=== PATIENT | male | born 1995 | race African-American/Black ===

== ENCOUNTER 2021-05-29 09:02 | Emergency (ER) | payer OTHER, SELFPAY ==
[2021-05-29 09:12] VITALS: BP 135/86; PULSE 58; RESP 16; TEMP 35.9; O2SAT 99
--- NOTE | 2021-05-29 09:32 | ED.ABDPAIN ---
HPI - Abdominal Pain General Chief Complaint: Abdominal Pain Stated Complaint: abd pain Time Seen by Provider: 05/29/21 09:22 Source: patient and RN notes reviewed Mode of arrival: ambulatory Limitations: no limitations History of Present Illness HPI narrative: Patient presents today complaining of severe lower abdominal pain since 3:00 this morning with nausea and vomiting. Patient states he has vomited 3 times, last was 30 minutes prior to arrival. She denies fever, diarrhea, constipation, urinary symptoms. Currently rates pain 10/10 and has taken no medication for symptoms prior to arrival. No one else in his home is sick. MD elicited complaint: abdominal pain Related Data Allergies Allergy/AdvReac Type Severity Reaction Status Date / Time No Known Allergies Allergy Verified 05/29/21 09:19 Review of Systems Review of Systems: CONSTITUTIONAL: Denies body aches, fever, chills, or sweats. EYES: Denies visual changes, redness, or discharge. ENT: Denies rhinorrhea, congestion, sore throat, or otalgia. CARDIOVASCULAR: Denies chest pain, palpitations, or edema. RESPIRATORY: Denies cough or dyspnea. GASTROINTESTINAL: Denies diarrhea. + Nausea, vomiting, abdominal pain GENITOURINARY: Denies dysuria or hematuria. SKIN: Denies rash, itching, or wounds. MUSCULOSKELETAL: Denies back pain, joint pain, or myalgia. NEUROLOGIC: Denies headache, numbness, tingling, or weakness. PSYCH: Denies depression or anxiety. PMFSH Comments At time of signature, I have reviewed and agree with nursing past medical, surgical, social and family history unless otherwise noted. Please see nursing chart for further information. There is no relevant family history pertinent to the presenting complaint Exam Narrative: GENERAL: Ill-appearing, well-nourished, and in moderate pain distress. HEAD: Normocephalic, atraumatic. EYES: EOMI. No redness or drainage. Conjunctivae normal. ENT: Mucous membranes pink and moist. NECK: Normal AROM. CHEST: No respiratory distress. Clear to auscultation. HEART: Regular rate and rhythm. No murmur appreciated. Normal peripheral pulses. ABDOMEN: Soft, nondistended, hyperactive bowel sounds. +Tenderness and guarding to bilateral lower quadrants. EXTREMITIES: Normal range of motion. No edema. SKIN: Warm, dry, no rash. Capillary refill normal. Normal skin turgor. NEURO: No focal deficits. Alert and oriented x3. Gait steady. PSYCH: Normal affect. No signs of depression or anxiety. Course Course Level of Care: Express Care Visit Vital Signs Vital signs: Vital Signs Temperature 96.7 F L 05/29/21 09:12 Pulse Rate 58 L 05/29/21 09:12 Respiratory Rate 16 05/29/21 09:12 Blood Pressure 135/86 05/29/21 09:12 Pulse Oximetry 99 05/29/21 09:12 Temperature 96.7 F L 05/29/21 09:12 Pulse Rate 58 L 05/29/21 09:12 Respiratory Rate 16 05/29/21 09:12 Blood Pressure 135/86 05/29/21 09:12 Pulse Oximetry 99 05/29/21 09:12 Reviewed Transfer Transfered to: [place] Transportation: Other (Private vehicle) Transfer rationale: Abdominal pain Accepting physician: Ankit MDM - Abdominal Pain Differential Diagnosis Differential diagnosis: Likely abdominal pain, acute appendicitis, calculus of kidney, diverticulitis, gastroenteritis and other Lab Data Attestation: I reviewed the patient's lab results. Labs: Urine Glucose Negative Reference Range: Negative Urine Bilirubin Negative Reference Range: Negative Urine Ketone Negative Reference Range: Negative Urine Specific [place] 1.030 Reference Range:1.001-1.035 Urine Blood Trace Reference Range: Negative *
== END 2021-05-29 09:35 | disposition short-term general hospital (02) ==
PROVIDERS: Emergency Provider Nurse Practitioner
DX: R10.31 Right lower quadrant pain (principal); R10.32 Left lower quadrant pain
CPT/HCPCS: 81003; 99203; G0463

== ENCOUNTER 2021-05-29 09:50 | Emergency (ER) | payer OTHER, SELFPAY ==
--- NOTE | ~2021-05-29 | CT_ITS ---
EXAMINATION: CT abdomen pelvis w con DATE: 05/29/2021 11:42 INDICATION: Abdominal pain and vomiting TECHNIQUE: Computed tomography (CT) of the abdomen and pelvis was performed with 100 mL Omnipaque-350 intravenous contrast. Automated exposure control and iterative reconstruction technique were employe d. The dose-length product was 271.81 mGy-cm. COMPARISON: None FINDINGS: Lung bases are clear. Heart size is normal. No pericardial or pleural effusion. Liver, gallbladder, s pleen, pancreas, bilateral adrenal glands and left kidney are normal. There is a 2 mm stone at the ri ght ureterovesicular junction. There is mild right hydroureteronephrosis with delayed right nephrogra m and mild right perinephric stranding. Bowels including the appendix are normal. No free intraperito robina gas or fluid. No pathologically enlarged abdominal or pelvic lymphadenopathy. Bones are unremark able. IMPRESSION: 1. 2 mm stone at the right ureterovesicular junction with mild right hydroureteronephrosis. Reviewed, dictated and finalized at location A. IMPRESSION: 1. 2 mm stone at the right ureterovesicular junction with mild right hydrourete ronephrosis.
--- NOTE | ~2021-05-29 | XR_ITS ---
EXAMINATION: XR abdomen/kub 1V DATE: 05/29/2021 13:03 INDICATION: Ureterolithiasis TECHNIQUE: A supine view of the abdomen was obtained. COMPARISON: CT dated 05/29/2021 at 11:32 AM FINDINGS: Excreted contrast is seen in the left renal collecting system and in the bladder without hydronephros is. Prominent delayed right nephrogram with no evident excreted contrast in the right renal collectin g system to assess for hydronephrosis. The stomach. Seen in the region of the right ureterovesicular junction is unable to be distinguished from the contrast in the bladder. Normal bowel gas pattern. IMPRESSION: 1. Prominent delayed right nephrogram with no evident excreted contrast at the right renal collecting system which suggests persistent significant right-sided obstruction due to the stone previously see n at the right ureterovesicular junction. Reviewed, dictated and finalized at location A. IMPRESSION: 1. Prominent delayed right nephrogram with no evident excreted contrast at the right renal collecting system which suggests persistent significant right-sided obstruction due to the stone previously seen at the right ureterovesicular carmen ction.
[2021-05-29 09:53] VITALS: BP 129/79; PULSE 59; RESP 12; TEMP 36.1; O2SAT 100
[2021-05-29 10:19] LABS: Basophils Absolute Auto 0.1 K/mm3 (0.0-0.1); Basophils Percent Auto 0.4 % (0.2-1.2); Eosinophils Percent Auto 0.1 % (0-4.4); Hematocrit 42.9 % (42.0-52.0); Hemoglobin 14.8 g/dL (14.0-18.0); Immature Granulocyte Absolute 0.09 K/mm3 (0.00-0.031); Immature Granulocyte Percent A 0.6 % (0-0.5); Lymphocytes Absolute Auto 1.51 K/mm3 (0.9-3.2); Lymphocytes Percent Auto 10.9 % (18.3-44.2); Mean Corpuscular HGB Conc 34.5 g/dl (32-36); Mean Corpuscular Hemoglobin 30.7 pg (26-34); Mean Platelet Volume 9.3 fl (7.4-10.4); Monocytes Absolute Auto 1.1 K/mm3 (0.1-0.6); Monocytes Percent Auto 7.6 % (2.6-8.5); Neutrophils Absolute Auto 11.2 K/mm3 (1.3-6.7); Neutrophils Percent Auto 80.4 % (45.5-73.1); Platelet Count Result 268 k/mm3 (150-375); Red Blood Count 4.82 M/mm3 (4.6-6.20); Red Cell Distribution Width 13.4 % (11.5-14.5); White Blood Count 13.9 K/mm3 (4.5-10.0)
[2021-05-29 10:58] LABS: Add Urine Microscopic? YES; Appearance Urine Cloudy (Clear); Bilirubin Urine Negative (Negative); Blood Urine 3+ (Negative); Color Urine Yellow (Yellow); Glucose Urine UA Negative (Negative); Ketones Urine Trace mg/dL (Negative); Leukocyte Esterase Ur Negative LEU/UL (Negative); Mucus Urine Heavy /lpf; Nitrate Urine Negative (Negative); Protein Urine 2+ mg/dL (Negative); RBC Urine >75 /hpf (0-2); Squamous Epithelial Cell Urine Rare /hpf (Few); WBC Urine 16-20 /hpf
[2021-05-29 11:00] LABS: Specific Grav Ur 1.033 (1.001-1.035)
--- NOTE | 2021-05-29 11:00 | ED.ABDPAIN ---
HPI - Abdominal Pain General Chief Complaint: Abdominal Pain <Diamond Keane PA-C - Last Filed: 05/29/21 13:37> Stated Complaint: abd pain, vomiting <Diamond Keane PA-C - Last Filed: 05/29/21 13:37> Time Seen by Provider: 05/29/21 10:02 <Diamond Keane PA-C - Last Filed: 05/29/21 13:37> Source: patient <Diamond Keane PA-C - Last Filed: 05/29/21 13:37> Mode of arrival: ambulatory <Diamond Keane PA-C - Last Filed: 05/29/21 13:37> Limitations: no limitations <Diamond Keane PA-C - Last Filed: 05/29/21 13:37> History of Present Illness HPI narrative: This is a 26 year old male that presents to the ER for abdominal pain present since this morning. Associated with nausea and vomiting. Denies fever, diarrhea, dysuria, or hematuria. <Diamond Keane PA-C - Last Filed: 05/29/21 13:37> Related Data Allergies/Adverse Reactions: Allergies Allergy/AdvReac Type Severity Reaction Status Date / Time No Known Allergies Allergy Verified 05/29/21 09:19 <Diamond Keane PA-C - Last Filed: 05/29/21 13:37> Review of Systems Review of Systems: CONSTITUTIONAL: Denies fever GASTROINTESTINAL: Reports abdominal pain, nausea, vomiting. Denies diarrhea. GENITOURINARY: Denies dysuria or hematuria. <Diamond Keane PA-C - Last Filed: 05/29/21 13:37> All systems reviewed & are unremarkable except as noted in HPI and below <Diamond Keane PA-C - Last Filed: 05/29/21 13:37> ON LICENSE OF [facility] Past Medical History Medical History: Medical History (Updated 05/29/21 @ 13:35 by Diamond Keane PA-C) No active medical problems <Diamond Keane PA-C - Last Filed: 05/29/21 13:37> Social History Social History: Social History (Updated 05/29/21 @ 13:29 by Diamond Keane PA-C) Substance use: never <Diamond Keane PA-C - Last Filed: 05/29/21 13:37> Exam Narrative: GENERAL: Well-appearing, well-nourished, and in no acute distress. HEAD: Normocephalic, atraumatic. EYES: EOMI. CHEST: Clear to auscultation. No respiratory distress. No wheezes rales or rhonchi HEART: Regular rate and rhythm. No murmur heard. Normal peripheral pulses. ABDOMEN: Soft, nondistended, normal active bowel sounds. Tender to palpation throughout the lower abdomen, without guarding. No CVA tenderness EXTREMITIES: Normal range of motion. No edema. SKIN: Warm, dry, no rash. NEURO: No focal deficits. Alert and oriented x3. PSYCH: Normal mood and affect <Diamond Keane PA-C - Last Filed: 05/29/21 13:37> Course MUSIC EDUCATOR/PA Physician Supervision For this patient encounter, I reviewed the MUSIC EDUCATOR or PA documentation, treatment plan, and medical decision making <Carlos Pham MD - Last Filed: 05/29/21 15:53> Vital Signs Vital signs: Vital Signs Temperature 97.0 F L 05/29/21 09:53 Pulse Rate 59 L 05/29/21 09:53 Respiratory Rate 12 05/29/21 09:53 Blood Pressure 129/79 05/29/21 09:53 Pulse Oximetry 100 05/29/21 09:53 Temperature 97.0 F L 05/29/21 09:53 Pulse Rate 59 L 05/29/21 09:53 Respiratory Rate 12 05/29/21 09:53 Blood Pressure 129/79 05/29/21 09:53 Pulse Oximetry 100 05/29/21 09:53 <Diamond Keane PA-C - Last Filed: 05/29/21 13:37> Vital Signs Temperature 97.0 F L 05/29/21 09:53 Pulse Rate 59 L 05/29/21 09:53 Respiratory Rate 12 05/29/21 09:53 Blood Pressure 129/79 05/29/21 09:53 Pulse Oximetry 100 05/29/21 09:53 Temperature 97.0 F L 05/29/21 09:53 Pulse Rate 59 L 05/29/21 09:53 Respiratory Rate 12 05/29/21 09:53 Blood Pressure 129/79 05/29/21 09:53 Pulse Oximetry 100 05/29/21 09:53 <Carlos Pham MD - Last Filed: 05/29/21 15:53> MDM - Abdominal Pain MDM Narrative Medical decision making narrative: Patient presents to the emergency department for lower abdominal pain present since this morning. He is afebrile and nontoxic-appearing. CBC with mild leukocytosis to 13.9. Metabolic panel with mild e
[2021-05-29 11:02] LABS: Alanine Aminotransferase 25 U/L (4-50); Albumin Level 4.9 g/dL (3.5-5.1); Alkaline Phosphatase 82 U/L (38-126); Anion Gap 9 mmol/L (8-16); Aspartate Amino Transferase 34 U/L (17-59); Bilirubin,Total 0.5 mg/dL (0.2-1.3); Blood Urea Nitrogen 14 mg/dL (9-20); Calcium 9.1 mg/dL (8.4-10.2); Carbon Dioxide 26 mmol/L (22-30); Chloride 106 mmol/L (98-107); Estimated CRCL calculation 88 ml/min; Estimated Glomerular Filt Rate > 60; Glucose 151 mg/dL (65-110); Lipase 55 U/L (23-300); Potassium 3.9 mmol/L (3.4-5.0); Sodium 141 mmol/L (137-145)
[2021-05-29] MEDS: SODIUM CHLORIDE 0.9% IV 1,000 ML 999 ML IV CONT (11:18)
[2021-05-29] MEDS: MORPHINE SULFATE (*CRX) 4 MG/ML INJ IV PUSH (11:19)
[2021-05-29] MEDS: ONDANSETRON INJ 4 MG/2 ML VIAL IV PUSH (11:19)
[2021-05-29 11:22] LABS: Hemoglobin A1C 5.1 % (<5.7)
[2021-05-29] MEDS: PROCHLORPERAZINE EDISYLATE 10 MG/2 ML VIAL IV PUSH (14:26)
== END 2021-05-29 14:37 | disposition home or self-care (01) ==
PROVIDERS: Physician Assistant; Emergency Provider Emergency Medicine
DX: N13.2 Hydronephrosis with renal and ureteral calculous obstruction (principal)
CPT/HCPCS: 36415; 74018; 74177; 80053; 81001; 81003; 83036; 83690; 85025; 87086; 96361; 96365; 96375; 99284; J0131; J0696; J0780; J2270; J2405; J7030; Q9967

== ENCOUNTER 2022-04-23 19:14 | Emergency (ER) | payer OTHER, SELFPAY ==
[2022-04-23 19:20] VITALS: BP 155/93; PULSE 93; RESP 14; TEMP 37; O2SAT 98
--- NOTE | 2022-04-23 19:31 | ED.URI ---
HPI - URI/Sore Throat General Chief Complaint: Upper Respiratory Infection Stated Complaint: Ear/Nose/ Throat Time Seen by Provider: 04/23/22 19:31 Source: patient, RN notes reviewed and old records reviewed Mode of arrival: ambulatory Limitations: no limitations History of Present Illness HPI Narrative: 27-year-old male presents to the [facility] with complaints of sore throat, cough, congestion since Sunday. Patient reports that his roommate, child is positive strep and wants to be checked. Has taken ibuprofen and Benadryl for symptom Related Data Home Medications Medication Instructions Recorded Confirmed No Home Medications 04/23/22 04/23/22 Allergies Allergy/AdvReac Type Severity Reaction Status Date / Time No Known Allergies Allergy Verified 04/23/22 19:19 Review of Systems Review of Systems: All systems reviewed & are unremarkable except as noted in HPI and below Constitutional: Constitutional: Reports no additional constitutional complaints Eyes: Eyes: Reports no additional eye complaints ENT: Reports nasal congestion and Reports sore throat Cardiovascular: Cardiovascular: Reports no additional cardiovascular complaints, Denies chest pain and Denies dyspnea Respiratory: Respiratory: Reports as per HPI, Denies chest congestion, Reports cough and Denies dyspnea Gastrointestinal: Gastrointestinal: Reports no additional gastrointestinal complaints, Denies abdominal pain, Denies nausea and Denies vomiting Musculoskeletal: Musculoskeletal: Reports no additional musculoskeletal complaints Integumentary/Breasts: Skin/Breast: Reports system reviewed and no additional complaints, except as docu Neurologic: Reports system reviewed and no additional complaints, except as documented Psychiatric: Psychiatric: Reports no additional psychiatric complaints Allergic/Immunologic: Allergic/Immunologic: Reports no additional allergic/immunologic complaints [facility] Past Medical History Medical History No active medical problems Social History Social History (Updated 04/23/22 @ 19:36 by Eladia Franco APRN) Smoking status: Current every day smoker Tobacco type: cigarettes Substance use: never Comments At the time of my signature, I reviewed and agree with the nursing past medical, surgical, social, and family history. There is no relevant family history pertinent to the patient complaint. Exam Const: General: cooperative, healthy appearing, comfortable, no acute distress, well developed, alert and well nourished Nutritional Appearance: well nourished Orientation/consciousness: patient oriented x3 Limitations: no limitations HENMT: Head: normal to inspection Ears: hearing grossly normal bilaterally and external ears normal Face/Nose/Sinus: Normal external nose present, Normal nares present, Normal nasal mucous membranes and turbinates present and normal facial exam Face and sinus: normal facial exam Mouth: Yes Normal oral and palatal mucosa present, Yes lip normal and Yes moist mucous membranes Throat: posterior oropharynx normal, uvula midline and postnasal drainage Eyes: General: appearance normal, both eyes and all related structures Alignment and Position: alignment normal Periorbital: periorbital findings normal Conjunctivae: conjunctivae normal Pupils: Equal, round and reactive pupils present EOM: EOMs intact bilaterally Neck: Neck: normal visual inspection, full ROM, no lymphadenopathy and no meningeal signs Chest: Chest palpation & inspection: normal inspection of the chest Resp: Effort & Inspection: normal respiratory effort and able to speak in complete sentences Auscultation: clear to auscultation bilaterally, no crackles, no rales, no rhonchi and no wheezes Cardio: Rate: regular rate Rhythm: regular rhythm Back/Spine/Pelvis: Cervical Spine: cervical ROM normal Thoracic/Lumbar Spine: No thoracic spinal tenderness Skin: Gener
== END 2022-04-23 19:42 | disposition home or self-care (01) ==
PROVIDERS: Emergency Provider Nurse Practitioner
DX: J06.9 Acute upper respiratory infection, unspecified (principal); F17.210 Nicotine dependence, cigarettes, uncomplicated
CPT/HCPCS: 87081; 87880; 99213; G0463